=== PATIENT | female | born 1950 | race Caucasian/White ===

== ENCOUNTER 2017-04-26 08:57 | Emergency (ER) | payer MEDICARE, BC ==
--- NOTE | 2017-04-26 09:34 | UC ---
Ear Complaint HPI - HPI Summary HPI Summary: 66 year old female presents with complains of sinus congestion and right ear pain. - History of Current Complaint Chief Complaint: UCRespiratory Stated Complaint: RIGHT EAR PAIN/SINUS Hx Obtained From: Patient Onset/Duration: Sudden Onset Severity Initially: Moderate Severity Currently: Moderate Pain Scale Used: 0-10 Numeric - 5 - Allergies/Home Medications Allergies/Adverse Reactions: Allergies Allergy/AdvReac Type Severity Reaction Status Date / Time No Known Allergies Allergy Verified 04/26/17 09:32 PMH/Surg Hx/FS Hx/Imm Hx Previously Healthy: Yes - Surgical History Surgical History: Yes Surgery Procedure, Year, and Place: parathyroid removal X 2 LOBES- 4 YEARS AGO- [facility]. TONSILLECTOMY- A CHILD. LASIK EYE SURGERY-10 YEARS AGO - Family History Known Family History: Positive: None - Social History Alcohol Use: Weekly Alcohol Amount: 3 PER WEEK Substance Use Type: None Smoking Status (MU): Former Smoker Amount Used/How Often: smoked ~15 years total Length of Time of Smoking/Using Tobacco: quit 10 y/o Have You Smoked in the Last Year: No When Did the Patient Quit Smoking/Using Tobacco: 10 YEARS AGO Review of Systems Constitutional: Negative Skin: Negative Eyes: Negative ENT: Ear Ache, Nasal Discharge, Sinus Congestion, Sinus Pain/Tenderness Respiratory: Negative Cardiovascular: Negative Gastrointestinal: Negative Genitourinary: Negative Motor: Negative Neurovascular: Negative Musculoskeletal: Negative Neurological: Negative Psychological: Negative All Other Systems Reviewed And Are Negative: Yes Physical Exam Triage Information Reviewed: Yes Vital Signs Reviewed: Yes Eye Exam: Normal ENT: Positive: Nasal congestion, Nasal drainage, Sinus tenderness Dental Exam: Normal Neck exam: Normal Neck: Positive: 1 Respiratory Exam: Normal Cardiovascular Exam: Normal Abdominal Exam: Normal Musculoskeletal Exam: Normal Neurological Exam: Normal Psychological Exam: Normal Skin Exam: Normal Ear Complaint Course/Dx - Differential Dx/Diagnosis Provider Diagnoses: sinus congestion. right ear pain Discharge - Discharge Plan Condition: Stable Disposition: HOME Prescriptions: Amoxicillin/Clavulanate TAB* [Augmentin TAB 875*] 875 mg PO BID #20 tab Magic M W2 Hernandez/Maal/Nyst/Lido* 5 ml SWISH SPIT QID PRN #120 ml PRN Reason: Pain Methylprednisolone [Medrol Dosepak 4 MG*] 4 mg PO .SEE EFREN INSTRUCTION #21 tab Neomyc/Polym/HC 1% OTIC SUSP* [Cortisporin Otic Susp 1%*] 4 drop RIGHT EAR QID # 1 btl Patient Education Materials: Sinusitis (ED), Otitis Externa (ED) Referrals: No Primary Care Phys,NOPCP [Primary Care Provider] -
[2017-04-26 09:38] VITALS: BP 151/76
== END 2017-04-26 10:15 | disposition home or self-care (01) ==
LOC: UCCORT 08:57
DX: R09.81 Nasal congestion (principal); H92.01 Otalgia, right ear; Z87.891 Personal history of nicotine dependence
CPT/HCPCS: 87651; 99213; G0463